=== PATIENT | female | born 1945 | race Caucasian/White ===

== ENCOUNTER 2022-03-01 10:54 | Emergency (ER) | payer MEDICARE, OTHER | END 2022-03-01 12:13 | disposition home or self-care (01) | LOC: JP.ED 10:54 | DX: N39.0 Urinary tract infection, site not specified (principal); I10 Essential (primary) hypertension; Z87.891 Personal history of nicotine dependence; Z79.899 Other long term (current) drug therapy | CPT/HCPCS: 81001; 87086; 99283 ==